=== PATIENT | male | born 1975 | race Two or more races ===

== ENCOUNTER 2018-11-09 08:14 | Day surgery (SDC) | payer OTHER ==
[2018-11-08 12:08] VITALS: BMI 28.1
--- NOTE | 2018-11-09 09:08 | HP ---
History & Physical Update - Physical Physical: No Change - Assessment Assessment: No Change - Plan Plan: No Change (Large incarcerated umbilical / ventral hernia for laparoscopic repair with mesh. Consent obtained, risks , benefits and complications explained , including recurrence, pain , bowel injury.)
[2018-11-09] MEDS ORDERED: MIDAZOLAM HCL 2 MG/2 ML SINGLE DOSE VIAL ONE (09:21)
[2018-11-09] MEDS ORDERED: ROCURONIUM BROMIDE 50 MG/5 ML SYRINGE ONE (09:21)
[2018-11-09] MEDS ORDERED: PROPOFOL 20 ML ONE ×2 (09:21→11:50)
[2018-11-09] MEDS ORDERED: LIDOCAINE HCL/PF 2% SDV 5ML VIAL ONE (09:22)
[2018-11-09] MEDS ORDERED: ROPIVACAINE HCL 0.5% 30ML VIAL ONE (09:27)
[2018-11-09] MEDS ORDERED: ceFAZolin SODIUM 1 GM VIAL ONE (10:02)
[2018-11-09] MEDS ORDERED: SODIUM CHLORIDE 0.9% P/F 10 ML VIAL IJ ONE (10:02)
[2018-11-09] MEDS ORDERED: ceFAZolin SODIUM 1 GM VIAL IVPB ONE (10:04)
[2018-11-09] MEDS ORDERED: DEXAMETHASONE SOD PHOSPHATE 4 MG/1 ML VIAL ONE (10:04)
[2018-11-09] MEDS ORDERED: BUPIVACAINE HCL/PF 0.5% (5 MG/ML) 30 ML VIAL IJ ONE ×2 (11:09→12:22)
[2018-11-09] MEDS ORDERED: KETOROLAC TROMETHAMINE 30 MG/1 ML VIAL ONE (11:57)
[2018-11-09] MEDS ORDERED: GLYCOPYRROLATE 0.2 MG/1 ML VIAL ONE (12:14)
[2018-11-09] MEDS ORDERED: NEOSTIGMINE METHYLSULFATE 0.5 MG/ML - 10 ML MDV ONE (12:15)
[2018-11-09] MEDS ORDERED: oxyCODONE HCL 5 MG TABLET PO PRN (12:50)
[2018-11-09] MEDS ORDERED: PROMETHAZINE HCL 25 MG/1 ML VIAL IVPUSH PRN (12:50)
[2018-11-09] MEDS ORDERED: ONDANSETRON 4 MG/2 ML VIAL IVPUSH PRN (12:50)
[2018-11-09] MEDS ORDERED: LACTATED RINGERS SOLUTION 1,000 ML IV SCH (13:00)
--- NOTE | 2018-11-09 13:10 | SURG ---
Surgery Executive Vice President And Chief Financial Officer Note Executive Vice President And Chief Financial Officer: Amanda Aguilar PA-C (Suzy) Date of Service: 11/09/18 Diagnosis: Incarcerated Ventral hernia/umbilical hernia Procedure: Laparoscopic repair of umbilical/ventral hernia with mesh I was present for the entirety of the operative procedure. For further detail, please refer to operative report.
--- NOTE | 2018-11-09 13:10 | OP ---
Operative Note - Note: Operative Date: 11/09/18 Pre-Operative Diagnosis: Incarcerated Ventral hernia/umbilical hernia Operation: Laparoscopic repair of umbilical/ventral hernia with mesh Findings: as dictated Post-Operative Diagnosis: Same as Pre-op Surgeon: Katrin Alonso Fare Register Repairer: Amanda Aguilar Anesthesiologist/BRICKLAYER TENDER: Dandy Fernández Anesthesia: General, Local Specimens Removed: incarcerated fat Estimated Blood Loss (mls): 5 (ml) Drains, Volume Out (mls): 50 (ml yellow urine) Fluid Volume Replaced (mls): 700 (ml LR) Operative Report Dictated: Yes
--- NOTE | 2018-11-09 13:12 | OP ---
Operative Note - Note: Operative Date: 11/09/18 Pre-Operative Diagnosis: Incarcerated umbilcal and ventral hernia. Operation: Laparoscopic repair of incarcerated ventral and uimbilical hernia with mesh. Surgeon: Katrin Alonso Bartender: Amanda Aguilar Anesthesiologist/ESTHETIC DERMATOLOGIST: Dandy Fernández Anesthesia: General Specimens Removed: Incarcerated hernial contents, fat . Estimated Blood Loss (mls): 5 Operative Report Dictated: Yes
[2018-11-09] MEDS ORDERED: oxyCODONE HCL 5 MG TABLET ONE (15:18)
[2018-11-09] MEDS ORDERED: oxyCODONE HCL 5 MG TABLET PO ONE (15:25)
--- NOTE | 2018-11-09 17:22 | OP ---
DATE OF OPERATION: 11/09/2018 SEX: Male. AGE: [age] years old. PREOPERATIVE DIAGNOSIS: Incarcerated ventral and umbilical hernia. POSTOPERATIVE DIAGNOSIS: Incarcerated ventral and umbilical hernia. OPERATIVE PROCEDURE: Laparoscopic repair of incarcerated umbilical and ventral hernia with 4-1/6-daxv-xnagarjo mesh. SURGEON: Derrick Alonso MD HEALTH SPECIALIST: JUSTIN Wayne ANESTHESIOLOGIST: Dandy Fernández MD ANESTHESIA: General. OPERATIVE DESCRIPTION: This 43-year-old man had a large bulge at and above the umbilicus. Patient was found to have incarcerated ventral and umbilical hernia. He was brought in for repair of the hernia. Consent was obtained. Risks, benefits, and complications were discussed with the patient. Patient was brought to the operating room. General anesthesia was administered. The abdomen painted and draped. A Abebe catheter was placed in the bladder; this was removed right after completion of the surgery. Timeout was called. He was given 2 g of Ancef. The abdomen painted and draped. Incision was made in the midline in subxiphoid area of about 2 cm in length. This was carried through the skin, subcutaneous tissue, and the linea alba. The peritoneum was incised, and the peritoneal cavity was entered. A 10- to 12-mm laparoscopic trocar of the Evy type was introduced in the abdominal cavity, and the abdomen was insufflated with carbon dioxide at 6 L per minute with maximum intraabdominal pressure of 15 mmHg. A 5 and 10-mm camera, 30-degree angle was introduced into the abdominal cavity to visualize the peritoneal cavity under direct vision with the camera as and when required. Two stay sutures of 2-0 Vicryl were obtained to hold the camera in position. This was passed through the linea alba. Under direct vision, two 5-mm trocars were inserted in the left side of the abdomen, one in the left lower quadrant of the abdomen in the flank and another in the left upper quadrant of the abdomen, again laterally. These were noted entering the abdominal cavity under direct vision of the camera. A third 5-mm trocar was then introduced into the abdominal cavity in the right lower quadrant of the abdomen. This was also noted entering the abdominal cavity under direct vision of the camera. The camera was switched to the 5-mm port as required. The large umbilical hernia with fat incarcerated was noted. This extended also to the epigastrium. This was defined by pulling the fat into the abdominal cavity with traction. The peritoneum around the hernia was divided using the Harmonic scalpel and the hernia contents were reduced into the abdominal cavity. Using the Harmonic scalpel, the preperitoneal fat was returned to the abdominal cavity and divided from its surroundings using the Harmonic scalpel. The edges of the hernia defect were internally defined. It was decided to use an 11 cm x 4.5-cm diameter mesh with the inflatable device for anchoring the mesh to the abdominal wall in place. Four small skin incisions were made superior as well as inferior to the defect with the central point in the center of the umbilical hernia. Similarly, 2 small incisions were made on either side of the midline. These incisions were made to allow passage of a suture passer and bringing the Prolene suture, anchoring the mesh to the abdominal wall. Once the intraabdominal contents were completely freed, the incarcerated contents were removed and sent to Pathology as hernial contents. A 4.5-cm circumferential mesh was then rolled together and introduced through the 10-mm port into the abdominal cavity. This also contained an inflatable device to anchor the mesh to the abdominal wall. Once the mesh was placed in the abdominal cavity, the central tube of the mesh was brought out through a small incision at the center of the umbilicus. The mesh was then pulled up and placed against the anterior abdominal wall. The inflatable device was then inflated through the central piece, and this was locked in position, holding the mesh against the anterior abdominal wall. Prior to this, the 2-0 Prolene suture that was placed superiorly and inferiorly on either side of the edge of the mesh was brought out through the abdominal wall using the suture passer, again enabling to anchor the mesh to the abdominal wall on either side of the midline as well as superiorly and inferiorly. This Prolene mesh suture was tied to the abdominal wall after it was brought out through the abdominal wall through this tiny incision using the suture passer. Once the mesh was held against the abdominal wall, few metallic tackers were placed against the edge of the mesh circumferentially. Once this was done, the central inflatable device was deflated and brought out of the abdominal cavity through this subxiphoid port. This was completely removed. The mesh was adequately placed and anchored to the abdominal wall. Two other absorbable tackers were then placed between the center and the periphery circumferentially to reinforce and anchor the mesh again to the abdominal wall. The defect was adequately covered both superiorly, covering the umbilical as well as the epigastric defect, as well as circumferentially around with an adequate margin. There was no bleeding and no injury to any organs in the abdominal cavity. At the time of placing the mesh, the abdomen was partially deflated to allow the mesh to be adequately placed. Once this procedure was completed, the instruments were withdrawn. The trocars were also removed. The abdomen was carefully deflated. The linea alba in the midline at the subxiphoid area was approximated with interrupted 2-0 Vicryl sutures. The skin was approximated with buried, interrupted 4-0 Monocryl sutures. The smaller incisions as well as the skin incision used for placing the trocar were also approximated with buried, interrupted 4-0 Monocryl sutures. Sponge count and instrument count were correct. Estimated blood loss was between 5 to 10 mL. Next, 0.5% Marcaine was injected into the wound. The umbilicus and the subcutaneous defect were filled with 2 x 2 gauze and adhesive tape to create a new umbilicus. Dermabond was applied to the skin edges. Patient tolerated the procedure well, was extubated, and sent to the recovery room in satisfactory and stable condition. Lydia [id number]
[2018-11-09 18:10] VITALS: BP 133/70; PULSE 84; TEMP 98
--- NOTE | 2018-11-14 17:13 | PATH ---
Surgical Pathology Report Patient Name: JOSE LUIS BANERJEE [facility]. Rec. #: [id number] /Age/Gender: 1975 (Age: 43) / M Account: [id number] Location: [facility] SURGICAL Taken: 11/09/2018 Received: 11/09/2018 Reported: 11/14/2018 Physicians: Derrick Alonso M.D. Specimen(s) Received INCARCERATED FAT Clinical History Incarcerated umbilical/ventral hernia Final Diagnosis INCARCERATED FAT, LAPAROSCOPIC INCARCERATED UMBILICAL/VENTRAL HERNIA REPAIR WITH MESH: BENIGN FIBROADIPOSE TISSUE. Electronically Signed Barbara Allen M.D. Gross Description Received in formalin, labeled "incarcerated fat" are three portions of adipose tissue, ranging from 1-4.3 cm in greatest dimension. Chemical Worker tissue is submitted in one cassette. AE/11/14/2018 ebram/11/14/2018
== END 2018-11-09 18:10 | disposition home or self-care (01) ==
LOC: JASU-SURG 08:14
PROVIDERS: ATTEND Specialist
PROC: 0WUF4JZ Supplement Abdominal Wall with Synthetic Substitute, Percutaneous Endoscopic Approach (ICD-10-PCS; principal; 2018-11-09 09:30)
DX: K42.0 Umbilical hernia with obstruction, without gangrene (principal); K43.6 Other and unspecified ventral hernia with obstruction, without gangrene
CPT/HCPCS: 88304-TC; 94760